=== PATIENT | female | born 1975 | race Hispanic/Latino ===

== ENCOUNTER 2016-04-20 09:26 | Emergency (ER) | payer OTHER ==
[2016-04-20 09:43] VITALS: BP 137/91
--- NOTE | 2016-04-20 10:12 | Emergency Department Report ---
ED Abdominal Pain HPI - General Chief Complaint: Abdominal Pain Stated Complaint: RIGHT SIDE HURTS Time Seen by Provider: 04/20/16 09:55 Source: patient Mode of arrival: Ambulatory Limitations: No Limitations - History of Present Illness MD Complaint: abdominal pain -: days(s) (2) Location: RLQ Radiation: none Severity: moderate Severity scale (0 -10): 5 Quality: stabbing, aching Consistency: constant, colicky Improves With: nothing Worsens With: eating Associated Symptoms: nausea, vomiting, diarrhea, chills - Related Data Previous Rx's Medication Instructions Recorded Last Taken Type Diclofenac Sodium 50 mg PO BID #20 tablet. 04/20/16 Unknown Rx Ondansetron [Zofran TAB] 4 mg PO Q8HR PRN #20 tablet 04/20/16 Unknown Rx traMADol [Ultram 50 MG tab] 50 mg PO Q4HR PRN #15 tablet 04/20/16 Unknown Rx Allergies Allergy/AdvReac Type Severity Reaction Status Date / Time No Known Allergies Allergy Unverified 04/20/16 10:31 ED Review of Systems ROS: Stated complaint: RIGHT SIDE HURTS Other details as noted in HPI Constitutional: chills, malaise. denies: fever Eyes: denies: eye pain, eye discharge, vision change ENT: denies: ear pain, throat pain Respiratory: denies: cough, shortness of breath, wheezing Cardiovascular: denies: chest pain, palpitations Endocrine: no symptoms reported Gastrointestinal: abdominal pain, nausea, vomiting, diarrhea. denies: constipation, hematemesis Genitourinary: denies: urgency, dysuria, discharge Musculoskeletal: denies: back pain, joint swelling, arthralgia Skin: denies: rash, lesions Neurological: denies: headache, weakness, paresthesias Psychiatric: denies: anxiety, depression Hematological/Lymphatic: denies: easy bleeding, easy bruising ED Past Medical Hx - Past Medical History Previous Medical History?: Yes Hx Diabetes: Yes - Surgical History Past Surgical History?: Yes Additional Surgical History: ovarian cyst, emdometriosis - Social History Smoking Status: Current Every Day Smoker Substance Use Type: None - Medications Home Medications: Home Medications Medication Instructions Recorded Confirmed Last Taken Type Diclofenac Sodium 50 mg PO BID #20 tablet. 04/20/16 Unknown Rx Ondansetron [Zofran TAB] 4 mg PO Q8HR PRN #20 tablet 04/20/16 Unknown Rx traMADol [Ultram 50 MG tab] 50 mg PO Q4HR PRN #15 tablet 04/20/16 Unknown Rx ED Physical Exam - General Limitations: No Limitations General appearance: alert, in no apparent distress - Head Head exam: Present: atraumatic, normocephalic - Eye Eye exam: Present: normal appearance - ENT ENT exam: Present: mucous membranes moist - Neck Neck exam: Present: normal inspection - Respiratory Respiratory exam: Present: normal lung sounds bilaterally. Absent: respiratory distress, rales, rhonchi, stridor - Cardiovascular Cardiovascular Exam: Present: regular rate. Absent: systolic murmur, diastolic murmur, rubs, gallop - GI/Abdominal GI/Abdominal exam: Present: soft, tenderness (mild right lower quadrant tenderness), normal bowel sounds. Absent: distended, guarding, rebound, rigid - Extremities Exam Extremities exam: Present: normal inspection - Back Exam Back exam: Present: normal inspection - Neurological Exam Neurological exam: Present: alert, oriented X3 - Psychiatric Psychiatric exam: Present: normal affect, normal mood - Skin Skin exam: Present: warm, dry, intact, normal color. Absent: rash ED Course Vital Signs 04/20/16 09:39 Temperature 98.3 F Pulse Rate 80 Respiratory 16 Rate Blood Pressure 137/91 O2 Sat by Pulse 96 Oximetry - Reevaluation(s) Reevaluation #1: 04/20/16 13:28 Discussed lab and radiology findings with patient patient understands diagnosis and follow-up instructions. Patient is normotensive and normal cardiac afebrile and nontoxic at this time patient is in no distress. ED Medical Decision Making - Lab Data Result diagrams: 04/20/16 10:08 04/20/16 10:08 - EKG Data Rate: normal - Radiology Data Radiology results: report reviewed Critical care attestation.: If time is entered above; I have spent that time in minutes in the direct care of this critically ill patient, excluding procedure time. ED Disposition Clinical Impression: Ovarian cyst Disposition: DISCHARGED TO HOME OR SELFCARE Is pt being admited?: No Condition: Stable Instructions: Ovarian Cyst (ED) Prescriptions: Diclofenac Sodium 50 mg PO BID #20 tablet. Ondansetron [Zofran TAB] 4 mg PO Q8HR PRN #20 tablet PRN Reason: Nausea And Vomiting traMADol [Ultram 50 MG tab] 50 mg PO Q4HR PRN #15 tablet PRN Reason: Pain Referrals: PRIMARY CAREMD [Primary Care Provider] - 3-5 Days VÍCTOR GRAFF MD [Staff Physician] - 3-5 Days Forms: Work/School Release Form(ED) Time of Disposition: 13:25
[2016-04-20 10:17] LABS: Basophils % (Auto) 0.5 % (0.0-1.8); Eosinophils % (Auto) 1.2 % (0.0-4.3); Hematocrit 42.3 % (30.3-42.9); Hemoglobin 13.7 gm/dl (10.1-14.3); Mean Corpuscular HGB Conc 32 % (30-34); Mean Corpuscular Hemoglobin 27 pg (28-32); Mean Corpuscular Volume 82 fl (79-97); Platelet Count 290 K/mm3 (140-440); Red Blood Count 5.16 M/mm3 (3.65-5.03); Red Cell Distribution Width 15.1 % (13.2-15.2); White Blood Count 11.4 K/mm3 (4.5-11.0)
[2016-04-20] MEDS: REGLAN IV ONE (10:28)
[2016-04-20] MEDS: MORPHINE IV ONE ×2 (10:32→12:30)
[2016-04-20 10:33] LABS: Alanine Aminotransferase 22 units/L (7-56); Albumin 4.3 g/dL (3.9-5); Albumin/Globulin Ratio 1.6 %; Alkaline Phosphatase 66 units/L (35-129); Anion Gap 18 mmol/L; Bilirubin,Total 0.4 mg/dL (0.1-1.2); Blood Urea Nitrogen 9 mg/dL (7-17); Carbon Dioxide 23 mmol/L (22-30); Chloride 99.2 mmol/L (98-107); Glucose 98 mg/dL (65-100); Lipase 37 units/L (13-60); Potassium 4.2 mmol/L (3.6-5.0); Sodium 136 mmol/L (137-145)
--- NOTE | 2016-04-20 11:52 | Cat Scan Report ---
CT abdomen and pelvis with contrast: History: Right lower quadrant pain. Transverse images are obtained from lower chest to the ischium with coronal and sagittal 2-D reformatted images. The visualized lung bases are normal. The abdominal and retroperitoneal structures are unremarkable. The abdominal aorta is normal in size and contour with some scattered atheromatous mural calcification. No periaortic or mesenteric adenopathy identified. The bowel is unopacified. The appendix is visualized. No inflammatory or suspicious findings noted. No abnormal fluid visualized. Sections in the pelvis demonstrates a 16mm right ovarian cyst. Impressions: Small right ovarian cyst.
[2016-04-20 12:09] LABS: Bacteria,Urine 1+ /HPF (Negative); Bilirubin,Urine NEG (Negative); Blood,Urine NEG (Negative); Ketones,Urine NEG (Negative); Leukocyte Esterase,Urine NEG (Negative); Mucus,Urine FEW /HPF; Nitrite,Urine NEG (Negative); Protein,Urine <15 mg/dL mg/dL (Negative); Urobilinogen,Urine < 2.0 mg/dL (<2.0); WBC,Urine < 1.0 /HPF (0.0-6.0)
== END 2016-04-20 14:12 | disposition home or self-care (01) ==
LOC: ED 09:26
DX: N83.209 Unspecified ovarian cyst, unspecified side (principal); R11.2 Nausea with vomiting, unspecified; R19.7 Diarrhea, unspecified; E11.9 Type 2 diabetes mellitus without complications; F17.200 Nicotine dependence, unspecified, uncomplicated; Z98.890 Other specified postprocedural states
CPT/HCPCS: 36415; 74177; 80053; 81001; 83690; 85025; 96374; 96375; 99284; J2270; J2765; Q9967